=== PATIENT | male | born 1985 | race Caucasian/White ===

== ENCOUNTER 2016-11-03 23:16 | Emergency (ER) | payer OTHER ==
[~2016-11-03] VITALS: Ht 170.2 cm; Wt 87.5 kg
[2016-11-03 23:25] VITALS: BP 149/94
== END 2016-11-04 00:21 | disposition home or self-care (01) ==
LOC: ED 23:16
DX: B37.89 Other sites of candidiasis (principal)

== ENCOUNTER 2016-12-13 13:25 | Emergency (ER) | payer OTHER ==
[2016-12-13 16:12] VITALS: BP 135/86
== END 2016-12-13 16:12 | disposition home or self-care (01) ==
LOC: ED 13:25
DX: B34.9 Viral infection, unspecified (principal)